=== PATIENT | female | born 1965 | race African-American/Black ===

== ENCOUNTER 2017-10-28 09:11 | Emergency (ER) | payer SELFPAY ==
[~2017-10-28] VITALS: Ht 162.6 cm; Wt 89.8 kg
[2017-10-28 09:47] LABS: APPEARANCE CLEAR ((CLEAR)); BILIRUBIN NEGATIVE; BLOOD NEGATIVE; COLOR STRAW ((YELLOW)); GLUCOSE (STRIP) NEGATIVE; KETONES NEGATIVE; LEUKOCYTES NEGATIVE; NITRITE NEGATIVE; PROTEIN (STRIP) NEGATIVE; UCUL ADDED? NO; UROBILINOGEN 0.2 MG/DL (0.2-1.0)
[2017-10-28 10:18] LABS: HEMATOCRIT 41.3 % (36.0-46.0); HEMOGLOBIN 13.3 G/DL (11.9-15.5); MCH 30.3 PG (29.0-34.0); MCHC 32.2 G/DL (30.0-36.0); MCV 94.1 FL (83-99); PLATELET COUNT 223 K/uL (156-360); RBC DIS.WIDTH-CV 13.7 % (11.8-14.6); RBC DIS.WIDTH-SD 47.4 % (39-53); RED BLOOD COUNT 4.39 M/uL (3.80-5.20); WHITE BLOOD COUNT 4.7 K/uL (4.1-10.2)
[2017-10-28 10:32] LABS: CHLORIDE 111 mEq/L (99-109); POTASSIUM 3.9 mEq/L (3.7-5.4); SODIUM 144 mEq/L (136-147)
[2017-10-28 10:34] LABS: GLUCOSE 111 mg/dL (70-99); TOTAL PROTEIN 7.1 g/dL (6.4-8.3)
[2017-10-28 10:36] LABS: TOTAL BILIRUBIN 0.8 mg/dL (0.0-1.0)
[2017-10-28 10:37] LABS: ALKALINE PHOSPHATASE 77 IU/L (3-129)
[2017-10-28 10:38] LABS: CREATININE 1.1 mg/dL (0.6-1.3); GFR ESTIMATE (CALCULATED) > 59 mL/min/
[2017-10-28 10:39] LABS: AST (GOT) 14 IU/L (2-34); UREA NITROGEN (BUN) 12 mg/dL (9-23)
[2017-10-28 10:40] LABS: ALT (GPT) 12 IU/L (3-49)
[2017-10-28] MEDS ORDERED: NAPROSYN500 MG PO (10:52)
[2017-10-28] MEDS ORDERED: FLEXERIL10 MG PO (10:52)
[2017-10-28 10:54] VITALS: BP 177/97
== END 2017-10-28 10:58 | disposition home or self-care (01) ==
LOC: EDBD 09:11 → EME 09:11
PROVIDERS: Nurse Practitioner Family
DX: M62.830 Muscle spasm of back (principal); M54.5 Low back pain; R20.0 Anesthesia of skin; R35.0 Frequency of micturition; M25.78 Osteophyte, vertebrae; Z82.49 Family history of ischemic heart disease and other diseases of the circulatory system; Z83.3 Family history of diabetes mellitus; F17.200 Nicotine dependence, unspecified, uncomplicated
CPT/HCPCS: 72110; 80053; 81003; 85027; 99281; 99285